=== PATIENT | male | born 1980 | race Caucasian/White ===

== ENCOUNTER 2020-04-03 06:59 | Outpatient (REF) | payer OTHER, SELFPAY | END 2020-04-03 07:00 | disposition home or self-care (01) | LOC: HO.LAB 06:59 | PROVIDERS: Visit Provider Internal Medicine | DX: Z20.822 Contact with and (suspected) exposure to COVID-19 (principal) | CPT/HCPCS: 36415; C9803; U0003 ==

== ENCOUNTER 2024-07-31 11:35 | Emergency (ER) | payer OTHER, SELFPAY ==
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
[2024-07-31 11:54] VITALS: BP 126/73; PULSE 80; RESP 14; TEMP 36.3; O2SAT 99; BMI 25.1
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
[2024-07-31] MEDS: Bacitracin Oint 0.9 GM PACKET 1 APPL TOPICAL (12:45)
[2024-07-31] MEDS: Ibuprofen 600 MG TABLET PO (13:18)
[2024-07-31 13:20] VITALS: BP 112/78; PULSE 52; RESP 13; TEMP 36.5; O2SAT 100
[2024-07-31 13:30] VITALS: BP 112/78; PULSE 52; RESP 13; TEMP 36.5; O2SAT 100
== END 2024-07-31 13:31 | disposition home or self-care (01) ==
PROVIDERS: Emergency Provider Emergency Medicine
DX: S01.112A Laceration without foreign body of left eyelid and periocular area, initial encounter (principal); S02.2XXA Fracture of nasal bones, initial encounter for closed fracture; S01.511A Laceration without foreign body of lip, initial encounter; R51.9 Headache, unspecified; X58.XXXA Exposure to other specified factors, initial encounter; V43.52XA Car driver injured in collision with other type car in traffic accident, initial encounter; Y93.9 Activity, unspecified; Y92.410 Unspecified street and highway as the place of occurrence of the external cause; Y99.8 Other external cause status
CPT/HCPCS: 12011; 70486; 99284

== ENCOUNTER → 2024-07-31 12:44 | Outpatient (BNV) | payer OTHER, SELFPAY | PROVIDERS: Emergency Provider Emergency Medicine; Visit Provider Radiology Diagnostic Radiology | DX: S02.40DA Maxillary fracture, left side, initial encounter for closed fracture (principal) | CPT/HCPCS: 70486 ==